=== PATIENT | female | born 1965 | race Caucasian/White ===

== ENCOUNTER 2016-12-09 16:13 | Emergency (ER) | payer BC ==
[2016-12-09] MEDS ORDERED: MORPHINE SULFATE 4 MG/ML SYRG IM ONE (17:42)
[2016-12-09] MEDS ORDERED: MORPHINE SULFATE 4 MG/ML SYRG ONE (17:44)
--- OUTSIDE RECORDS SUMMARY | 2016-12-09 17:54 | XMS REPORT | Continuity of Care Document ---
:1965 Author Organization [facility] ([facility]) Address [address] [place] [address] Phone [phone] Care Team Providers Name Role Phone DavidNorm Primary Care Provider [phone] Source Comments This disclosure is being made pursuant to the Care Everywhere program, applicable federal and state laws, and may not contain all informaitonavailable regarding this patient.[facility] ([facility]) Active Allergies and Adverse Reactions Not on File Current Medications Not on file Active Problems Not on file Social History Tobacco Use Types Packs/Day Years Used Date Never Assessed Plan of Care Health Maintenance Due Date Last Done Comments HCV Screening 1965 Hepatitis B Vaccine (1 of 3 - Primary Series) 1965 Tdap Vaccine 1974 Lipid Disorder Screening 1981 MMR Vaccine 1981 Td Vaccine 1981 Cervical Cancer Screening 1993 Mammogram 2003 Colonoscopy 05/29/2013 Influenza Vaccine: Seasonal (#1) 04/02/2016 Results from Last 3 Months Not on file
[2016-12-09] MEDS ORDERED: DOXYCYCLINE HYCLATE 100 MG TABLET PO ONE (18:04)
[2016-12-09] MEDS ORDERED: HYDROcodone/ACETAMINOPHEN 1 EACH TABLET PO ONE ×2 (18:16)
--- NOTE | 2016-12-09 18:17 | ERNOTE ---
Upper Extremity HPI - Narrative Date of Service: 12/09/16 - 1744 - General Extremities Pain Location: hand: right Source: patient Exam Limitations: no limitations - Immun/Allergies/Home Medications Immunizations: IMMUNIZATION HX Immunizations Up to Date Yes History of Influenza Vaccine Yes Hx Pneumococcal Vaccination No Allergies/Adverse Reactions: Allergies Allergy/AdvReac Type Severity Reaction Status Date / Time No Known Allergies Allergy Verified 12/09/16 16:36 Home Medications: HOME MEDICATIONS Doxycycline Monohydrate 100 mg PO BID #10 tablet 12/09/16 [Last Taken Unknown] HYDROcodone/ACETAMINOPHEN [[place] 5-325] 1 each PO Q4H #20 tablet 12/09/16 [Last Taken Unknown] - History of Present Illness Occurred: just prior to arrival Location of Incident: home Severity: moderate Method of Injury: Reports: direct blow Loss of Consciousness: Reports: no loss of consciousness Other Injuries: Reports: none Review of Systems - Review of Systems Constitutional: Present: See HPI EYE: Present: no symptoms reported ENT: Present: no symptoms reported Respiratory: Present: no symptoms reported Cardiology: Present: no symptoms reported Gastrointestinal/Abdominal: Present: no symptoms reported Genitourinary: Present: no symptoms reported Musculoskeletal: Present: other - swelling and pain to the right hand along the second metacarpal Skin: Present: no symptoms reported Neurological: Present: no symptoms reported Endocrine: Present: no symptoms reported Hematologic/Lymphatic: Present: no symptoms reported Psych: Present: no symptoms reported - Patient's Past Medical History Patient History - Medical: No pertinent hx Patient History - Cardiac/Respiratory: No pertinent hx Patient History - Cancer: No Hx of Cancer Patient History - Surgical Procedures: Cholecystectomy, Other LMP (females 10-50): Menopausal - Social History Living Situations: home Psych History: No pertinent hx Smoking Status: Never smoker Alcohol Use: occasionally Drug Use: none - Immunizations Immunizations Up to Date: Yes Hx Pneumococcal Vaccination: No History of Influenza Vaccine: Yes Physical Exam - Physical Exam General Appearance: Present: wd/wn, alert, moderate distress Eye Exam: Normal inspection: bilateral, PERRL: bilateral Ears, Nose, Throat: Present: normal ENT inspection, H, normal pharynx Neck: Present: normal inspection, nontender Respiratory: Present: no respiratory distress, normal breath sounds, no accessory muscle use, chest nontender, lungs clear Cardiovascular/Chest: Present: regular rate, rhythm, no murmur, normal peripheral pulses Gastrointestinal/Abdominal: Present: normal bowel sounds, nontender, nondistended, soft, no organomegaly Rectal Exam: Present: deferred Back Exam: Present: normal inspection, normal range of motion Extremity Exam: Present: decreased range of motion, bony tenderness, joint swelling Neurological Exam: Present: alert, oriented, normal mood/affect Skin Exam: Present: normal color, warm/dry Lymphatic Exam: Present: no adenopathy ED Progress - Vital Signs Patient's Vital Signs:: I have reviewed the patient's vital signs. Vital Signs: Vital Signs 12/09/16 16:32 Temperature 37.3 C Pulse Rate 83 Respiratory 16 Rate Blood Pressure 135/55 O2 Sat by Pulse 98 Oximetry - X-Ray X-Ray #1 X-Ray: hand Interpretation: Reviewed by me - Progress/Reassessment Chief Complaint: Hand Injury/Pain Procedures Joint Reduction Site: other - right hand splint applied Plan - Plan Plan: I discussed the fracture with Dr. Purvis he said place a splint on the patient and we will treat with antibiotics because there is an open fracture. He will see her in clinic on Saturday and determine the next appropriate course of action. Departure Clinical Impression: Hand fracture, right Qualifiers: Encounter type: initial encounter Fracture type: open Qualified Code(s): S62.91XB - Unspecified fracture of right wrist and hand, initial encounter for open fracture - Departure Disposition: Home self-care Condition: Good Instructions: Metacarpal Fracture, [id number] Referrals: Sakshi Montgomery, OFFICE CLERK [Primary Care Provider] - Prescriptions: Doxycycline Monohydrate 100 mg PO BID #10 tablet HYDROcodone/ACETAMINOPHEN [[place] 5-325] 1 each PO Q4H #20 tablet
[2016-12-09] MEDS ORDERED: HYDROcodone/ACETAMINOPHEN 1 EACH TABLET ONE (18:33)
[2016-12-09] MEDS ORDERED: DOXYCYCLINE HYCLATE 100 MG TABLET ONE (18:33)
[2016-12-10 01:45] VITALS: BP 141/63
== END 2016-12-09 18:42 | disposition home or self-care (01) ==
LOC: ER 16:13
DX: S62.91XB Unspecified fracture of right hand, initial encounter for open fracture (principal); X58.XXXA Exposure to other specified factors, initial encounter; Y93.9 Activity, unspecified; Y92.009 Unspecified place in unspecified non-institutional (private) residence as the place of occurrence of the external cause

== ENCOUNTER 2017-05-06 18:12 | Emergency (ER) | payer BC ==
[2017-05-06 18:17] VITALS: BP 124/65
--- NOTE | 2017-05-06 18:44 | ERNOTE ---
Upper Extremity HPI - General Extremities Pain Location: elbow: right Time Seen by Provider: 05/06/17 18:14 Source: patient Exam Limitations: no limitations - Immun/Allergies/Home Medications Immunizations: IMMUNIZATION HX Immunizations Up to Date Yes History of Influenza Vaccine Yes Hx Pneumococcal Vaccination No Allergies/Adverse Reactions: Allergies Allergy/AdvReac Type Severity Reaction Status Date / Time No Known Allergies Allergy Verified 05/06/17 18:17 Home Medications: HOME MEDICATIONS HYDROcodone/ACETAMINOPHEN [[place] 5-325] 1 each PO Q4H #20 tablet 05/06/17 [Last Taken Unknown] - History of Present Illness Narrative: Patient was walking her dog today and tripped over the dog and landed on her right elbow causing pain in the proximal forearm and right elbow. Pain appears to be worse when she tries to roll forearm from supination to pronation she rates the pain as moderate intensity and is also pain to palpation. Occurred: just prior to arrival Location of Incident: other - Street Severity: moderate Method of Injury: Reports: direct blow Reason for Fall: Reports: tripped Loss of Consciousness: Reports: no loss of consciousness Other Injuries: Reports: none Review of Systems - Review of Systems Constitutional: Present: See HPI EYE: Present: no symptoms reported ENT: Present: no symptoms reported Respiratory: Present: no symptoms reported Cardiology: Present: no symptoms reported Gastrointestinal/Abdominal: Present: no symptoms reported Genitourinary: Present: no symptoms reported Musculoskeletal: Present: See HPI, joint pain Skin: Present: no symptoms reported Neurological: Present: no symptoms reported Endocrine: Present: no symptoms reported Hematologic/Lymphatic: Present: no symptoms reported Psych: Present: no symptoms reported - Patient's Past Medical History Patient History - Medical: No pertinent hx Patient History - Cardiac/Respiratory: No pertinent hx Patient History - Cancer: No Hx of Cancer Patient History - Surgical Procedures: Cholecystectomy, Other - Social History Living Situations: home Psych History: No pertinent hx Smoking Status: Never smoker Have you smoked in the past 12 months: No Alcohol Use: occasionally Drug Use: none - Immunizations Immunizations Up to Date: Yes Hx Pneumococcal Vaccination: No History of Influenza Vaccine: Yes Physical Exam - Physical Exam General Appearance: Present: wd/wn, alert, moderate distress Eye Exam: Normal inspection: bilateral, PERRL: bilateral Ears, Nose, Throat: Present: normal ENT inspection, H, normal pharynx Neck: Present: normal inspection, nontender Respiratory: Present: no respiratory distress, normal breath sounds, no accessory muscle use, chest nontender, lungs clear Cardiovascular/Chest: Present: regular rate, rhythm, no murmur, normal peripheral pulses Gastrointestinal/Abdominal: Present: normal bowel sounds, nontender, nondistended, soft, no organomegaly Rectal Exam: Present: deferred Back Exam: Present: normal inspection, normal range of motion Extremity Exam: Present: decreased range of motion, other - patient has tenderness over the radial head and pain from pronation to suppination and back Neurological Exam: Present: alert, oriented, normal mood/affect Skin Exam: Present: normal color, warm/dry Lymphatic Exam: Present: no adenopathy ED Progress - Vital Signs Patient's Vital Signs:: I have reviewed the patient's vital signs. Vital Signs: Vital Signs 05/06/17 18:15 Temperature 35.7 C L Pulse Rate 74 Respiratory 14 Rate Blood Pressure 124/65 O2 Sat by Pulse 100 Oximetry - X-Ray X-Ray #1 X-Ray: forearm Interpretation: Reviewed by me X-Ray #2 X-Ray: elbow Interpretation: Reviewed by me - Progress/Reassessment Chief Complaint: Upper Extremity Injury/Problem Procedures Pre-Proc Neuro Vasc Exam: normal Hand-Made Type: fiberglass Splint: ulnar Alignment good: Yes Splint applied by: Nurse Post-Proc Neuro Vasc Exam: normal Complications: Pt sherly procedure well Plan - Plan Plan: Patient will be referred to Dr. Rojas was also done surgery on her the past. Departure Clinical Impression: Radial head fracture, closed Qualifiers: Encounter type: initial encounter Fracture alignment: nondisplaced Laterality: right Qualified Code(s): S52.124A - Nondisplaced fracture of head of right radius, initial encounter for closed fracture - Departure Disposition: Home self-care Condition: Good Instructions: Elbow Fracture, Simple Referrals: Sakshi Montgomery CNP [Primary Care Provider] - Frank Rojas MD [Staff Physician] - Prescriptions: HYDROcodone/ACETAMINOPHEN [[place] 5-325] 1 each PO Q4H #20 tablet
[2017-05-06] MEDS ORDERED: HYDROcodone/ACETAMINOPHEN 1 EACH TABLET PO ONE (18:58)
[2017-05-06] MEDS ORDERED: HYDROcodone/ACETAMINOPHEN 1 EACH TABLET ONE (19:03)
== END 2017-05-06 19:00 | disposition home or self-care (01) ==
LOC: ER 18:12
PROC: 2W38X1Z Immobilization of Right Upper Extremity using Splint (ICD-10-PCS; principal; 2017-05-06)
DX: S52.124A Nondisplaced fracture of head of right radius, initial encounter for closed fracture (principal); W18.31XA Fall on same level due to stepping on an object, initial encounter; Y93.K1 Activity, walking an animal; Y92.410 Unspecified street and highway as the place of occurrence of the external cause